=== PATIENT | female | born 1975 | race Caucasian/White ===

== ENCOUNTER 2017-11-11 14:18 | Inpatient (IN) | payer OTHER ==
--- NOTE | 2017-11-11 14:43 | PDOC ---
Rapid Medical Evaluation Time Seen by Provider: 11/11/17 14:41 Medical Evaluation: Allergies Allergy/AdvReac Type Severity Reaction Status Date / Time No Known Allergies Allergy Verified 07/05/17 22:13 11/11/17 14:42 I have performed a brief in-person evaluation of this patient. The patient presents with a chief complaint of: Epigastric pain x 1 week w/ n/ v. Dx w/ gallstones at [facility] in 06/30 after p/w abd pain. No surgeries Pertinent physical exam findings:stable w/ +ttp to epigastrium I have ordered the following:labs The patient will proceed to the ED for further evaluation. 11/11/17 14:48 Discharge Disposition - Diagnosis Abdominal pain Qualifiers: Abdominal location: epigastric Qualified Code(s): R10.13 - Epigastric pain - Referrals - Patient Instructions - Post Discharge Activity
--- NOTE | 2017-11-11 15:05 | PDOC ---
History of Present Illness - General Chief Complaint: Pain Stated Complaint: ABDOMINAL PAIN Time Seen by Provider: 11/11/17 14:41 - History of Present Illness Initial Comments: 11/11/17 17:26 Patient is a 42 year old female without any significant PMH who presents to our ED c/o 2 day h/o exacerbation of a intermittent abdominal pain that started 4-5 months previous. Pain is constant, 10/10, epigastric, without any radiation. Endorses nausea and decreased appetite 2/2 to symptoms however is tolerating PO intake. Denies vomiting, fevers, dysuria/hematuria, constipation or diarrhea. Last BM prior to presentation. Patient states she was evaluated earlier this year for similar symptoms and advised to have her gallbladder removed, however she has not done so. LMP was October 2017. NKDA Surgical: breast augmentation Social: denies alcohol, denies nicotine, denies recreational drugs PMD: Dr. Peralta As per EMR patient was evaluated at our facility in June 2017 at which time labs significant for biliary colic w/o active cholecystitis. Patient was referred to Dr. Ying for elective cholecystectomy. Past History - Past Medical History Allergies/Adverse Reactions: Allergies Allergy/AdvReac Type Severity Reaction Status Date / Time morphine AdvReac Hives Verified 11/11/17 19:58 Home Medications: Ambulatory Orders NK [No Known Home Medication] 11/11/17 COPD: No - Immunization History Immunization Up to Date: Yes - Suicide/Smoking/Psychosocial Hx Smoking History: Never smoked Have you smoked in the past 12 months: No Hx Alcohol Use: No Drug/Substance Use Hx: No Substance Use Type: None Review of Systems - Review of Systems Constitutional: No: Chills, Fever Respiratory: No: Cough, Shortness of Breath Cardiac (ROS): No: Chest Pain, Lightheadedness, Palpitations ABD/GI: Yes: Nausea, Abdominal cramping. No: Constipated, Diarrhea, Rectal Bleeding, Vomiting : No: Burning, Dysuria *Physical Exam - Vital Signs Last Vital Signs Temp Pulse Resp BP Pulse Ox 97.2 F L 76 18 136/79 100 11/11/17 14:51 11/11/17 14:51 11/11/17 14:51 11/11/17 14:51 11/11/17 14:51 - Physical Exam General Appearance: Yes: Nourished, Appropriately Dressed Neck: positive: Trachea midline, Supple Respiratory/Chest: positive: Lungs Clear, Normal Breath Sounds Cardiovascular: positive: S1, S2 Vascular Pulses: Dorsalis-Pedis (R): 2+, Doralis-Pedis (L): 2+ Gastrointestinal/Abdominal: positive: Normal Bowel Sounds, Soft, Other ( Epigastric, RUQ TTP, (-) Osorio's sign on PE and sonographically). negative: Guarding, Rebound Musculoskeletal: negative: CVA Tenderness (R), CVA Tenderness (L) Extremity: positive: Normal Capillary Refill, Normal Inspection Integumentary: positive: Normal Color, Dry, Warm Neurologic: positive: Fully Oriented, Alert ED Treatment Course - LABORATORY CBC & Chemistry Diagram: 11/12/17 06:15 11/12/17 06:15 Medical Decision Making - Medical Decision Making 11/11/17 16:56 42 year old female presents with 5-6 month h/o intermittent epigastric pain. H/ o cholelithiasis w/recommendation for elective cholecystectomy. PE significant for RUQ epigastric TTP. Negative Osorio's and peritoneal signs. 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 Will obtain basic labs, lipase and GB U/S. Bedside U/S shows cholelithiasis, confirmed by formal U/S. No wall thickening, edema suggesting active cholecystitis. CMP significant for AST 586, ALT 936. Patient likely to require MCRP to evaluate for CBD stone as well as cholecystitis. Will page [facility] consultant surgery. Case d/w Dr. Ying. Evaluated patient at bedside. Requested continuous fluids as well as pain control w/IV Tylenol. Patient signed out to Dr. Carmichael (Resident) and Dr. Toure (Attending). Patient pending transfer to inpatient medical floors. *DC/Admit/Observation/Transfer Diagnosis at time of Disposition: Abdominal pain Qualifiers: Abdominal location: epigastric Qualified Code(s): R10.13 - Epigastric pain - Referrals - Patient Instructions - Post Discharge Activity
[2017-11-11 15:08] LABS: BASO % 0.4 % (0-2.0); EOS % 1.4 % (0-4.5); HEMATOCRIT 38.7 % (32.4-45.2); HEMOGLOBIN 12.9 GM/dL (10.7-15.3); LYMPH % 24.9 % (8-40); MCH 29.9 pg (25.7-33.7); MCHC 33.3 g/dl (32.0-36.0); MEAN CELL VOLUME 89.6 fl (80-96); MEAN PLT VOLUME 7.7 fl (7.5-11.1); MONO % 5.7 % (3.8-10.2); NEUT % 67.6 % (42.8-82.8); PLATELET COUNT 266 K/MM3 (134-434); RBC 4.31 M/mm3 (3.60-5.2); RDW 12.9 % (11.6-15.6); WHITE BLOOD COUNT 6.1 K/mm3 (4.0-10.0)
[2017-11-11 15:10] LABS: URINE APPEARANCE CLEAR; URINE BILIRUBIN NEGATIVE (<2.0 mg/dL); URINE COLOR YELLOW; URINE GLUCOSE (UA) NEGATIVE (NEGATIVE); URINE KETONE TRACE (NEGATIVE); URINE LEUK ESTERASE NEGATIVE (NEGATIVE); URINE NITRITE NEGATIVE (NEGATIVE); URINE PROTEIN NEGATIVE (NEGATIVE); URINE UROBILINOGEN NEGATIVE mg/dL (0.2-1.0)
[2017-11-11 15:37] LABS: CHLORIDE 101 mmol/L (98-107); SODIUM 137 mmol/L (136-145)
[2017-11-11 15:57] LABS: ALBUMIN 4.1 g/dl (3.4-5.0); ALK PHOS 198 U/L (45-117); ANION GAP 9 (8-16); BILIRUBIN,TOTAL 5.5 mg/dL (0.2-1.0); BLOOD UREA NITROGEN 14 mg/dL (7-18); CALCIUM 9.3 mg/dL (8.5-10.1); CO2 27 mmol/L (21-32); CREATININE 0.7 mg/dL (0.55-1.02); GLUCOSE,RANDOM 89 mg/dL (74-106); LIPASE 74 U/L (73-393)
[2017-11-11 15:59] LABS: SGOT/AST 586 U/L (15-37); SGPT/ALT 936 U/L (12-78)
[2017-11-11] MEDS ORDERED: morphine CARPU-JECT 4 MG/1 ML DISP.SYRIN IVPUSH ONE (16:53)
[2017-11-11] MEDS ORDERED: SODIUM CHLORIDE 0.9% 500 ML INFUS.BAG IV ONE (17:02)
[2017-11-11] MEDS ORDERED: morphine SULFATE 4 MG/ML VIAL ONE (17:11)
--- NOTE | 2017-11-11 17:58 | PDOC ---
Attending Attestation - Resident Resident Name: Socorro Patel - ED Attending Attestation I have performed the following: I have examined & evaluated the patient, The case was reviewed & discussed with the resident, I agree w/resident's findings & plan, Exceptions are as noted - Medical Decision Making 11/11/17 17:56 42-year-old female with a past medical history here today complaining of intermittent abdominal pain for several months constant over the last here today for evaluation because became very severe. Does have associated nausea and vomiting last night no fevers no chills On exam patient has right upper quadrant epigastric tenderness no Osorio's sign no rebound no guarding Differential diagnosis includes cholelithiasis cholecystitis pyelonephritis gastritis or duodenal ulcer. Plan ultrasound of gallbladder labs including CBC CMP and lipase UA Labs are noted for elevated liver enzymes ultrasound shows cholelithiasis with no wall thickening or edema no signs of cholecystitis we'll discuss with surgery patient does have elevated LFTs and is uncomfortable <Marjorie Ann - Last Filed: 11/11/17 17:55> - HPI HPI: 11/11/17 18:31 The patient is a year old female with no significant PMH who presents to the emergency department with 4 months of right upper quadrant abdominal pain. The patient reports that her RUQ abdominal pain has worsened significantly for the past 1 week. She describes her abdominal pain as constant. She reports associated vomiting and nausea with her abdominal pain. The patient denies any other symptoms. She denies any fever, chills, diarrhea , constipation or urinary symptoms. She denies any chest pain, shortness of breath, headache and dizziness. The patient denies any other complaints Allergies: NKDA - Physicial Exam PE: 11/11/17 18:32 GENERAL: Awake, alert, and fully oriented, in no acute distress HEAD: No signs of trauma EYES: PERRLA, EOMI, sclera anicteric, conjunctiva clear ENT: Auricles normal inspection, hearing grossly normal, nares patent, oropharynx clear without exudates. Moist mucosa NECK: Normal ROM, supple, no lymphadenopathy, JVD, or masses LUNGS: Breath sounds equal, clear to auscultation bilaterally. No wheezes, and no crackles HEART: Regular rate and rhythm, normal S1 and S2, no murmurs, rubs or gallops ABDOMEN: (+)Epigastric and right upper quadrant tenderness. Soft, normoactive bowel sounds. No guarding, no rebound. No masses EXTREMITIES: Normal range of motion, no edema. No clubbing or cyanosis. No cords, erythema, or tenderness NEUROLOGICAL: Cranial nerves II through XII grossly intact. Normal speech, normal gait SKIN: Warm, Dry, normal turgor, no rashes or lesions noted. Documentation prepared by Fermin Moses, acting as medical lab director for Marjorie Ann MD. <Fermin Moses - Last Filed: 11/11/17 18:32>
[2017-11-11 18:00] LABS: INR 1.12 (0.82-1.09); PROTHROMBIN TIME (PATIENT) 12.7 SEC (9.7-13.0)
[2017-11-11] MEDS ORDERED: HYDROmorphone HCL 2 MG TABLET ONE (19:06)
[2017-11-11] MEDS ORDERED: ACETAMINOPHEN INJECTION 100 ML IVPB ONE (19:27)
[2017-11-11] MEDS ORDERED: ACETAMINOPHEN 1000 MG/100 ML VIAL (NON FORMULARY) IVPB ONE (19:28)
--- NOTE | 2017-11-11 19:41 | PDOC ---
*Physical Exam - Vital Signs Last Vital Signs Temp Pulse Resp BP Pulse Ox 97.2 F L 76 18 136/79 100 11/11/17 14:51 11/11/17 14:51 11/11/17 14:51 11/11/17 14:51 11/11/17 14:51 ED Treatment Course - LABORATORY CBC & Chemistry Diagram: 11/11/17 14:58 11/11/17 14:58 - ADDITIONAL ORDERS Additional order review: Laboratory Results 11/11/17 11/11/17 11/11/17 17:32 17:32 14:58 PT with INR 12.70 INR 1.12 Sodium 137 Potassium 4.0 Chloride 101 Carbon Dioxide 27 Anion Gap 9 BUN 14 Creatinine 0.7 Creat Clearance w eGFR > 60 Random Glucose 89 Calcium 9.3 Total Bilirubin 5.5 H AST 586 H ALT 936 H Alkaline Phosphatase 198 H Total Protein 8.0 Albumin 4.1 Lipase 74 Serum , Qual Urine Color Urine Appearance Urine pH Ur Specific [place] Urine Protein Urine Glucose (UA) Urine Ketones Urine Blood Urine Nitrite Urine Bilirubin Urine Urobilinogen Ur Leukocyte Esterase Urine WBC (Auto) Urine RBC (Auto) Blood Type AB POSITIVE Antibody Screen Negative 11/11/17 11/11/17 14:58 14:58 PT with INR INR Sodium Potassium Chloride Carbon Dioxide Anion Gap BUN Creatinine Creat Clearance w eGFR Random Glucose Calcium Total Bilirubin AST ALT Alkaline Phosphatase Total Protein Albumin Lipase Serum , Qual Negative Urine Color Yellow Urine Appearance Clear Urine pH 6.0 Ur Specific [place] 1.003 Urine Protein Negative Urine Glucose (UA) Negative Urine Ketones Trace H Urine Blood 2+ H Urine Nitrite Negative Urine Bilirubin Negative Urine Urobilinogen Negative Ur Leukocyte Esterase Negative Urine WBC (Auto) 3-5 Urine RBC (Auto) 10-15 Blood Type Antibody Screen 11/11/17 14:58 RBC 4.31 MCV 89.6 MCHC 33.3 RDW 12.9 MPV 7.7 Neutrophils % 67.6 D Lymphocytes % 24.9 D Monocytes % 5.7 Eosinophils % 1.4 Basophils % 0.4 - Medications Given in the ED: ED Medications Discontinued Medications Generic Name Dose Route Start Last Admin Trade Name Freq PRN Reason Stop Dose Admin Diphenhydramine HCl 25 mg 11/11/17 17:02 11/11/17 17:10 Benadryl Injection - IVPUSH 07/02/18 17:03 25 mg ONCE ONE Administration Morphine Sulfate 4 mg 11/11/17 16:53 11/11/17 17:02 Morphine Injection - IVPUSH 11/11/17 16:54 4 mg ONCE ONE Administration Sodium Chloride 1,000 ml 11/11/17 17:02 11/11/17 17:10 Normal Saline - IV 11/11/17 17:03 1,000 ml ONCE ONE Administration Medical Decision Making - Medical Decision Making 42 year old female signed out to me in stable condition pending CT for cholecystectomy preop. Placed an order for 0.[address] for CT scan premedication. 11/11/17 19:41 *DC/Admit/Observation/Transfer Diagnosis at time of Disposition: Abdominal pain Qualifiers: Abdominal location: epigastric Qualified Code(s): R10.13 - Epigastric pain - Referrals - Patient Instructions - Post Discharge Activity
[2017-11-11] MEDS ORDERED: LORazepam 2 MG/ML SDV VIAL ONE (19:43)
[2017-11-11] MEDS ORDERED: KETOROLAC TROMETHAMINE 30 MG/1 ML VIAL IVPUSH PRN (19:47)
--- NOTE | 2017-11-11 20:03 | HP ---
Admitting History and Physical - Admission Chief Complaint: epigastric/upper abd pain History of Present Illness: 42yo F with h/o breast augmentation, liposuction, symptomatic cholelithiasis presents to ER with 6 mos of epigastric pain intermittently, sometimes associated with fatty food intake, who was seen in the ER in June for similar symptoms and had US and labs showing biliary colic but not cholecystitis. She was referred to surgery, but "got scared and did not make the appointment." She presents today with 3 days of much worse pain, associated with n/v, subjective fever previously, but not in last few days, and dark/ orange urine. Last BM was today, but she reports some constipation. In the ER, she is afebrile, with normal wbc, but significantly elevated LFTs and normal lipase. Bili is 5.5. US showed multiple gallstones without signs of cholecystitis. She has been in pain in the ER, and was given morphine but had some hives and so has since had IV Tylenol, which did not help as much, and IV Toradol which is helping a bit more. She has taken Tramadol at home with some effect in the past (after Jun visit). She is having pain at initial exam prior to MRCP, and is much calmer and more comfortable afterward, having also had 0.5mg ativan. History Source: Patient Limitations to Obtaining History: Language Barrier (Iranian - Dr. Toure facilitated Iranian translation at bedside) - Past Medical History Hepatobiliary: Yes: Cholelithiasis ...: No - Past Surgical History Additional Past Surgical History: breast augmentation, liposuction - Smoking History Smoking history: Never smoked Have you smoked in the past 12 months: No - Alcohol/Substance Use Hx Alcohol Use: No History of Substance Use: reports: None - Social History ADL: Independent Home Medications - Allergies Allergies/Adverse Reactions: Allergies Allergy/AdvReac Type Severity Reaction Status Date / Time morphine AdvReac Hives Verified 11/11/17 19:58 - Home Medications Home Medications: Ambulatory Orders NK [No Known Home Medication] 11/11/17 Family Disease History - Family Disease History Family History: Unable to Obtain (noncontributory) Review of Systems Unable to obtain ROS, reason: limited - Review of Systems Constitutional: reports: Fever. denies: Chills Eyes: denies: Blurred Vision, Recent Change in Vision HENT: denies: Difficult Swallowing, Nasal Congestion, Throat Pain Neck: denies: Swollen Glands, Tenderness Cardiovascular: denies: Chest Pain, Palpitations Respiratory: denies: Cough, SOB Gastrointestinal: reports: Abdominal Pain (with hpi), Constipation, Nausea, Vomiting. denies: Diarrhea Genitourinary: reports: Other (orange urine). denies: Burning, Dysuria Breasts: reports: Breast Implants Musculoskeletal: reports: Back Pain (with hpi) Integumentary: reports: Change in Color ("maybe" a little yellowish?). denies: Rash Neurological: denies: Dizziness, Headache Physical Examination Vital Signs: Vital Signs Temperature 97.2 F L 11/11/17 14:51 Pulse Rate 76 11/11/17 14:51 Respiratory Rate 18 11/11/17 14:51 Blood Pressure 136/79 11/11/17 14:51 O2 Sat by Pulse Oximetry (%) 100 11/11/17 14:51 Constitutional: Yes: Well Nourished, Calm, Mild Distress (secondary to pain) Eyes: Yes: Conjunctiva Clear, EOM Intact. No: Sclera Icterus HENT: Yes: Atraumatic, Normocephalic Neck: Yes: Supple, Trachea Midline Cardiovascular: Yes: Regular Rate and Rhythm. No: Murmur Respiratory: Yes: Regular, CTA Bilaterally Gastrointestinal: Yes: Normal Bowel Sounds, Soft, Tenderness (epigastric and RUQ mostly, no ernie/guard; less LUQ), Tenderness, Epigastrium. No: Distention, Tenderness, Rebound ...Rectal Exam: Yes: Deferred Renal/: Yes: CVA Tenderness - Right. No: CVA Tenderness - Left Breast(s): Yes: Breast Implants Musculoskeletal: Yes: Back Pain (not direct tenderness but indicates pain in central back) Extremities: No: Cool, Cyanosis Edema: No Peripheral Pulses WNL: Yes Integumentary: Yes: Jaundice (?mild - possible). No: Rash Neurological: Yes: Alert, Oriented Psychiatric: Yes: Alert, Oriented Labs: CBC, BMP 11/11/17 14:58 11/11/17 14:58 CMP Sodium 137 mmol/L (136-145) 11/11/17 14:58 Potassium 4.0 mmol/L (3.5-5.1) 11/11/17 14:58 Chloride 101 mmol/L (98-107) 11/11/17 14:58 Carbon Dioxide 27 mmol/L (21-32) 11/11/17 14:58 Anion Gap 9 (8-16) 11/11/17 14:58 BUN 14 mg/dL (7-18) 11/11/17 14:58 Creatinine 0.7 mg/dL (0.55-1.02) 11/11/17 14:58 Creat Clearance w eGFR > 60 (>60) 11/11/17 14:58 Random Glucose 89 mg/dL (74-106) 11/11/17 14:58 Calcium 9.3 mg/dL (8.5-10.1) 11/11/17 14:58 Total Bilirubin 5.5 mg/dL (0.2-1.0) H 11/11/17 14:58 AST 586 U/L (15-37) H 11/11/17 14:58 ALT 936 U/L (12-78) H 11/11/17 14:58 Alkaline Phosphatase 198 U/L (45-117) H 11/11/17 14:58 Total Protein 8.0 g/dl (6.4-8.2) 11/11/17 14:58 Albumin 4.1 g/dl (3.4-5.0) 11/11/17 14:58 Lipase 74 U/L (73-393) 11/11/17 14:58 Serum , Qual Negative 11/11/17 14:58 INR, PTT INR 1.12 (0.82-1.09) 11/11/17 17:32 Urine Test Results Urine Color Yellow 11/11/17 14:58 Urine Appearance Clear 11/11/17 14:58 Urine pH 6.0 (5.0-8.0) 11/11/17 14:58 Ur Specific [place] 1.003 (1.001-1.035) 11/11/17 14:58 Urine Protein Negative (NEGATIVE) 11/11/17 14:58 Urine Glucose (UA) Negative (NEGATIVE) 11/11/17 14:58 Urine Ketones Trace (NEGATIVE) H 11/11/17 14:58 Urine Blood 2+ (NEGATIVE) H 11/11/17 14:58 Urine Nitrite Negative (NEGATIVE) 11/11/17 14:58 Urine Bilirubin Negative (<2.0 mg/dL) 11/11/17 14:58 Ur Leukocyte Esterase Negative (NEGATIVE) 11/11/17 14:58 bili and LFTs were normal in June Imaging - Results Ultrasound: Report Reviewed, Image Reviewed (images personally reviewed - multiple gallstones, mildly dilated cbd?, no wall thickening or pericholecystic fluid) MRI: Pending Problem List - Problems (1) Calculus of gallbladder without cholecystitis without obstruction Assessment/Plan: biliary colic but now with significantly elevated LFTs admit to surgery NPO/IVF pain meds prn, first-line nonnarcotics GI/DVT prophylaxis MRCP pending trend labs further intervention pending results of studies in am will hold on antibiotics for now unless MRCP positive Dr. Toure facilitated Iranian interpretation at bedside: Discussed with patient risks, benefits and alternatives of laparoscopic possible open cholecystectomy, including but not limited to bleeding, infection , injury to adjacent structures, bile leak or ductal injury, intraabdominal abscess, need for further procedures; alternatives include delayed or no surgery - risks of this include recurrence of biliary colic, cholecystitis, cholangitis, pancreatitis. Patient desires to proceed with operation. Informed consent signed for same. Will plan for OR only after duct is cleared by MRCP or ERCP, and LFTs improving on labs. Anticipate lap baldomero this admission, timing to be determined. Code(s): K80.20 - CALCULUS OF GALLBLADDER W/O CHOLECYSTITIS W/O OBSTRUCTION (2) Epigastric pain Code(s): R10.13 - EPIGASTRIC PAIN (3) Elevated liver function tests Code(s): R94.5 - ABNORMAL RESULTS OF LIVER FUNCTION STUDIES
[2017-11-11] MEDS: SODIUM CHLORIDE 1,000 ML IV SCH (20:32)
[2017-11-11] MEDS ORDERED: KETOROLAC TROMETHAMINE 30 MG/1 ML VIAL ONE (20:33)
[2017-11-11 23:38] VITALS: BMI 25.7
[2017-11-12] MEDS: ACETAMINOPHEN 1000 MG/100 ML VIAL (NON FORMULARY) IVPB SCH ×4 (01:59→20:44)
[2017-11-12] MEDS: SODIUM CHLORIDE 1,000 ML IV SCH (02:00)
[2017-11-12 08:00] LABS: BASO % 0.4 % (0-2.0); EOS % 0.7 % (0-4.5); HEMATOCRIT 33.5 % (32.4-45.2); HEMOGLOBIN 11.3 GM/dL (10.7-15.3); LYMPH % 15.8 % (8-40); MCH 30.7 pg (25.7-33.7); MCHC 33.8 g/dl (32.0-36.0); MEAN PLT VOLUME 7.7 fl (7.5-11.1); MONO % 4.2 % (3.8-10.2); NEUT % 78.9 % (42.8-82.8); PLATELET COUNT 205 K/MM3 (134-434); RBC 3.68 M/mm3 (3.60-5.2); RDW 12.8 % (11.6-15.6); WHITE BLOOD COUNT 5.9 K/mm3 (4.0-10.0)
[2017-11-12 08:37] LABS: ALBUMIN 3.2 g/dl (3.4-5.0); ANION GAP 14 (8-16); BLOOD UREA NITROGEN 11 mg/dL (7-18); CALCIUM 8.2 mg/dL (8.5-10.1); CHLORIDE 106 mmol/L (98-107); CO2 20 mmol/L (21-32); CREATININE 0.5 mg/dL (0.55-1.02); GLUCOSE,RANDOM 69 mg/dL (74-106); LIPASE 69 U/L (73-393); POTASSIUM 4.1 mmol/L (3.5-5.1); SGOT/AST 282 U/L (15-37); SODIUM 140 mmol/L (136-145)
[2017-11-12 08:39] LABS: ALK PHOS 167 U/L (45-117); BILIRUBIN,TOTAL 4.8 mg/dL (0.2-1.0); TOT PROT 6.5 g/dl (6.4-8.2)
[2017-11-12 08:44] LABS: SGPT/ALT 598 U/L (12-78)
[2017-11-12] MEDS ORDERED: LACTATED RINGERS SOLUTION 1,000 ML/1,000 ML INFUS.BAG IV SCH ×3 (10:00→20:30)
--- NOTE | 2017-11-12 10:04 | CON.GI ---
Consult Consult Specialty:: Gastroenterology Referred by:: Dr Rosales Ying Reason for Consultation:: Jaundice - History of Present Illness Chief Complaint: Abdominal pain History of Present Illness: 42F Ukrainian speaking who was interviewed with the help of [employer] seismic interpreter #[id number]. She has a h/o biliary colic and had cholecystectomy offered in 06/30 but declined. She now presents with jaundice and pain. The pain is epigastric and is triggered by fatty foods. Had nausea but did not vomit. Sonogram reveals multiple GB stones. MRCP suggests a CBD stone but the official reading is pending. I await Dr Howard's call back. - History Source History Provided By: Patient Limitations to Obtaining History: Language Barrier - Past Medical History Gastrointestinal: Yes: Constipation Hepatobiliary: Yes: Cholelithiasis ...: No - Past Surgical History Past Surgical History: Yes: Additional Surgical History: Breast augmentation and liposuction - Alcohol/Substance Use Hx Alcohol Use: No History of Substance Use: reports: None - Smoking History Smoking history: Never smoked Have you smoked in the past 12 months: No - Social History Usual Living Arrangement: With Spouse ADL: Independent [facility] : [facility] ([facility]) History of Recent Travel: No Home Medications - Allergies Allergies/Adverse Reactions: Allergies Allergy/AdvReac Type Severity Reaction Status Date / Time morphine AdvReac Hives Verified 11/11/17 19:58 - Home Medications Home Medications: Ambulatory Orders NK [No Known Home Medication] 11/11/17 Family Disease History - Family Disease History Family Disease History: Heart Disease: Mother Other Family History: Aunt has cancer Review of Systems - Review of Systems Constitutional: reports: No Symptoms Eyes: reports: No Symptoms HENT: reports: No Symptoms Neck: reports: No Symptoms Cardiovascular: reports: No Symptoms Respiratory: reports: No Symptoms Gastrointestinal: reports: Abdominal Pain, Constipation Genitourinary: reports: Other (dark urine) Psychiatric: reports: Anxiety Physical Exam-GI Vital Signs: Vital Signs Temperature 98.3 F 11/12/17 06:00 Pulse Rate 77 11/12/17 06:00 Respiratory Rate 16 11/12/17 06:00 Blood Pressure 122/68 11/12/17 06:00 O2 Sat by Pulse Oximetry (%) 100 11/11/17 22:25 CBC,CMP WBC 5.9 K/mm3 (4.0-10.0) 11/12/17 06:15 RBC 3.68 M/mm3 (3.60-5.2) 11/12/17 06:15 Hgb 11.3 GM/dL (10.7-15.3) 11/12/17 06:15 Hct 33.5 % (32.4-45.2) 11/12/17 06:15 MCV 91.0 fl (80-96) 11/12/17 06:15 MCH 30.7 pg (25.7-33.7) 11/12/17 06:15 MCHC 33.8 g/dl (32.0-36.0) 11/12/17 06:15 RDW 12.8 % (11.6-15.6) 11/12/17 06:15 Plt Count 205 K/MM3 (134-434) D 11/12/17 06:15 MPV 7.7 fl (7.5-11.1) 11/12/17 06:15 Absolute Neuts (auto) 4.6 # 11/12/17 06:15 Neutrophils % 78.9 % (42.8-82.8) 11/12/17 06:15 Lymphocytes % 15.8 % (8-40) D 11/12/17 06:15 Monocytes % 4.2 % (3.8-10.2) 11/12/17 06:15 Eosinophils % 0.7 % (0-4.5) 11/12/17 06:15 Basophils % 0.4 % (0-2.0) 11/12/17 06:15 Nucleated RBC % 0 % (0-0) 11/12/17 06:15 Sodium 140 mmol/L (136-145) 11/12/17 06:15 Potassium 4.1 mmol/L (3.5-5.1) 11/12/17 06:15 Chloride 106 mmol/L (98-107) 11/12/17 06:15 Carbon Dioxide 20 mmol/L (21-32) L 11/12/17 06:15 Anion Gap 14 (8-16) 11/12/17 06:15 BUN 11 mg/dL (7-18) 11/12/17 06:15 Creatinine 0.5 mg/dL (0.55-1.02) L 11/12/17 06:15 Creat Clearance w eGFR > 60 (>60) 11/12/17 06:15 Random Glucose 69 mg/dL (74-106) L 11/12/17 06:15 Calcium 8.2 mg/dL (8.5-10.1) L 11/12/17 06:15 Total Bilirubin 4.8 mg/dL (0.2-1.0) H 11/12/17 06:15 AST 282 U/L (15-37) H 11/12/17 06:15 ALT 598 U/L (12-78) H 11/12/17 06:15 Alkaline Phosphatase 167 U/L (45-117) H D 11/12/17 06:15 Total Protein 6.5 g/dl (6.4-8.2) 11/12/17 06:15 Albumin 3.2 g/dl (3.4-5.0) L 11/12/17 06:15 Lipase 69 U/L (73-393) L 11/12/17 06:15 Serum , Qual Negative 11/11/17 14:58 Current Medications Generic Name Dose Route Start Last Admin Trade Name Freq PRN Reason Stop Dose Admin Acetaminophen 1,000 mg 11/12/17 03:00 11/12/17 01:59 Ofirmev Injection - IVPB 11/13/17 21:01 1,000 mg Q6H ZOILA Administration Lactated Ringer's 1,000 ml in 1,000 mls @ 150 mls/hr 11/12/17 10:00 Lactated Ringers Solution IV ASDIR ZOILA Indomethacin 50 mg 11/12/17 09:56 Indocin Suppository - AR 11/12/17 09:57 ONCE ONE Ketorolac Tromethamine 30 mg 11/11/17 19:47 11/11/17 20:35 Toradol Injection - IVPUSH 11/16/17 19:46 30 mg Q6H PRN Administration PAIN LEVEL 7 - 10 Ondansetron HCl 4 mg 11/11/17 19:54 Zofran Injection IVPUSH Q6H PRN NAUSEA Constitutional: Yes: Well Nourished Eyes: Yes: Sclera Icterus HENT: Yes: Normocephalic Neck: Yes: Supple Cardiovascular: Yes: Regular Rate and Rhythm Respiratory: Yes: CTA Bilaterally Gastrointestinal Inspection: Yes: Scars (healed [place]) ...Auscultate: Yes: Normoactive Bowel Sounds ...Palpate: Yes: Tenderness (epigastric mild tenderness, no peritoneal signs) ...Rectal Exam: Yes: Deferred Edema: No Peripheral Pulses WNL: Yes Neurological: Yes: Alert, Oriented Labs: CBC, BMP 11/12/17 06:15 11/12/17 06:15 INR, PTT INR 1.12 (0.82-1.09) 11/11/17 17:32 Imaging - Results MRI: Image Reviewed (mid-CBD stone seen) Problem List - Problems (1) Elevated liver function tests Assessment/Plan: Given her pain and GB stones choledocholithiasis is the most likely etiology for this jaundice. Using [employer] seismic interpreter #[id number] I have advised ERCP with sphincterotomy for stone extractions and/or stenting. I have informed Emiliana of the potential for such complication as perforation, hemorrhage and multiorgan failure that can arise as a result of ERCP induced pancreatitis. I did inform her of the risks that CBD stones pose including ascending cholangitis and biliary pancreatitis among others. After I answered her questions she signed an informed consent. I will do the ERCP today. I have communicated with Dr Ying and ordered a preprocedure Indocin suppository to protect Emiliana against pancreatittis. Code(s): R94.5 - ABNORMAL RESULTS OF LIVER FUNCTION STUDIES (2) Abdominal pain Code(s): R10.9 - UNSPECIFIED ABDOMINAL PAIN Qualifiers: Abdominal location: epigastric Qualified Code(s): R10.13 - Epigastric pain (3) Calculus of gallbladder without cholecystitis without obstruction Code(s): K80.20 - CALCULUS OF GALLBLADDER W/O CHOLECYSTITIS W/O OBSTRUCTION
[2017-11-12] MEDS ORDERED: INDOMETHACIN 50 MG RECTAL SUPPOSITORY PR ONE (10:15)
[2017-11-12] MEDS ORDERED: PROPOFOL 20 ML ONE (13:01)
[2017-11-12] MEDS ORDERED: ONDANSETRON 4 MG/2 ML VIAL ONE (13:01)
[2017-11-12] MEDS ORDERED: MIDAZOLAM HCL 2 MG/2 ML SINGLE DOSE VIAL ONE (13:01)
[2017-11-12] MEDS ORDERED: LIDOCAINE HCL 2% 100 MG/5 ML DISP.SYRIN ONE (13:01)
--- NOTE | 2017-11-12 13:19 | CON.ID ---
Consult Consult Specialty:: infectious diseases Referred by:: Reason for Consultation:: choleycystitis - History of Present Illness Chief Complaint: ruq pain History of Present Illness: 42yo F with h/o breast augmentation, liposuction, symptomatic cholelithiasis presents admitted because of epigastric pain according to her the pain has been going on for 6 months or so patient has been advised before to get surgery done and remove the gallbladder which she did not this time she came in because during the last 3-4 days he pain had come back and increased which was associated with nausea and vomiting and on work up her bili has gone high to 5 US showed multiple gallstones without signs of cholecystitis. patient was seen by surgery and gi just saw her and the plan is to take the patient for ercp patient had an abd mri done - History Source History Provided By: Patient, Medical Record Limitations to Obtaining History: Language Barrier - Past Medical History Gastrointestinal: Yes: Constipation Hepatobiliary: Yes: Cholelithiasis ...: No - Past Surgical History Past Surgical History: Yes: Additional Surgical History: Breast augmentation and liposuction - Alcohol/Substance Use Hx Alcohol Use: No History of Substance Use: reports: None - Smoking History Smoking history: Never smoked Have you smoked in the past 12 months: No - Social History Usual Living Arrangement: With Spouse ADL: Independent History of Recent Travel: No Home Medications - Allergies Allergies/Adverse Reactions: Allergies Allergy/AdvReac Type Severity Reaction Status Date / Time No Known Drug Allergies Allergy Verified 11/12/17 14:49 morphine AdvReac Hives Verified 11/11/17 19:58 - Home Medications Home Medications: Ambulatory Orders NK [No Known Home Medication] 11/11/17 Family Disease History - Family Disease History Family Disease History: Heart Disease: Mother Other Family History: Aunt has cancer Review of Systems - Review of Systems Constitutional: reports: Fever Eyes: reports: No Symptoms HENT: reports: No Symptoms Neck: reports: No Symptoms Cardiovascular: reports: No Symptoms Respiratory: reports: No Symptoms Gastrointestinal: reports: Abdominal Pain, Nausea, Vomiting Genitourinary: reports: No Symptoms Musculoskeletal: reports: No Symptoms Integumentary: reports: No Symptoms Neurological: reports: No Symptoms Endocrine: reports: No Symptoms Hematology/Lymphatic: reports: No Symptoms Psychiatric: reports: No Symptoms Physical Exam Vital Signs: Vital Signs Temperature 98.3 F 11/12/17 10:00 Pulse Rate 67 11/12/17 10:00 Respiratory Rate 18 11/12/17 10:00 Blood Pressure 108/60 11/12/17 10:00 O2 Sat by Pulse Oximetry (%) 99 11/12/17 09:00 Constitutional: Yes: Well Nourished, Calm, Mild Distress Cardiovascular: Yes: Regular Rate and Rhythm Respiratory: Yes: Regular, CTA Bilaterally Gastrointestinal: Yes: Soft, Hypoactive Bowel Sounds, Tenderness (ruq,epigastric ) Musculoskeletal: Yes: WNL Extremities: Yes: WNL Neurological: Yes: Alert, Oriented Psychiatric: Yes: Alert, Oriented Labs: CBC, BMP 11/12/17 06:15 11/12/17 06:15 Imaging - Results Ultrasound: Report Reviewed, Image Reviewed MRI: Report Reviewed, Image Reviewed Assessment/Plan Problem List - Problems (1) Calculus of gallbladder without cholecystitis without obstruction. Code(s): K80.20 - CALCULUS OF GALLBLADDER W/O CHOLECYSTITIS W/O OBSTRUCTION (2) Epigastric pain Code(s): R10.13 - EPIGASTRIC PAIN (3) Elevated liver function tests Code(s): R94.5 - ABNORMAL RESULTS OF LIVER FUNCTION STUDIES patient with biliary colic and choleycystitis with increased bili going for ercp plan jessica start patient on abx continue current mgmt will need cholecystectomy monitor enzymes and bili
[2017-11-12] MEDS ORDERED: ceFAZolin SODIUM 1 GM VIAL IVPB ONE (13:55)
[2017-11-12] MEDS ORDERED: ceFAZolin SODIUM 1 GM VIAL ONE (13:57)
--- NOTE | 2017-11-12 14:58 | PN ---
Progress Note (short form) - Note Progress Note: GI procedure note: please seen scanned ERCP note. A single large stone and multiple stone fragments were found in the distal common bile duct. A sphincterotomy was performed. The stone and stone debris were extracted using an extractor balloon. Case discussed with Dr Ying. Problem List - Problems (1) Elevated liver function tests Code(s): R94.5 - ABNORMAL RESULTS OF LIVER FUNCTION STUDIES (2) Abdominal pain Code(s): R10.9 - UNSPECIFIED ABDOMINAL PAIN Qualifiers: Abdominal location: epigastric Qualified Code(s): R10.13 - Epigastric pain (3) Calculus of gallbladder without cholecystitis without obstruction Code(s): K80.20 - CALCULUS OF GALLBLADDER W/O CHOLECYSTITIS W/O OBSTRUCTION
--- NOTE | 2017-11-12 16:25 | PN ---
Progress Note, Physician History of Present Illness: Pt with biliary colic and choledocholithiasis, had ERCP today with GI with extraction of stone and multiple fragments from cbd with sphincterotomy. Seen and examined in bed on floor after procedure. Pt reports feeling better, denies pain at this time. No nausea. Resting comfortably. - Current Medication List Current Medications: Active Medications Acetaminophen (Ofirmev Injection -) 1,000 mg IVPB Q6H ZOILA Stop: 11/13/17 21:01 Last Admin: 11/12/17 10:14 Dose: Not Given Lactated Ringer's (Lactated Ringers Solution) 1,000 ml in 1,000 mls @ 250 mls/ hr IV ASDIR ZOILA Stop: 11/12/17 20:30 Last Admin: 11/12/17 15:53 Dose: 250 mls/hr Lactated Ringer's (Lactated Ringers Solution) 1,000 ml in 1,000 mls @ 200 mls/ hr IV ASDIR ZOILA Stop: 11/13/17 02:30 Lactated Ringer's (Lactated Ringers Solution) 1,000 ml in 1,000 mls @ 125 mls/ hr IV ASDIR ZOILA Stop: 11/13/17 08:30 Piperacillin Sod/Tazobactam (Sod 4.5 gm/ Dextrose) 100 mls @ 200 mls/hr IVPB Q8H-IV ZOILA; Protocol Ketorolac Tromethamine (Toradol Injection -) 30 mg IVPUSH Q6H PRN PRN Reason: PAIN LEVEL 7 - 10 Stop: 11/16/17 19:46 Last Admin: 11/11/17 20:35 Dose: 30 mg Ondansetron HCl (Zofran Injection) 4 mg IVPUSH Q6H PRN PRN Reason: NAUSEA - Objective Vital Signs: Vital Signs Temperature 97.7 F 11/12/17 14:35 Pulse Rate 61 11/12/17 15:22 Respiratory Rate 17 11/12/17 15:22 Blood Pressure 110/66 11/12/17 15:22 O2 Sat by Pulse Oximetry (%) 99 11/12/17 15:22 Constitutional: Yes: Well Nourished, No Distress, Calm Eyes: Yes: Conjunctiva Clear, EOM Intact HENT: Yes: Atraumatic, Normocephalic Cardiovascular: Yes: Regular Rate and Rhythm Respiratory: Yes: Regular, CTA Bilaterally Gastrointestinal: Yes: Normal Bowel Sounds, Soft. No: Tenderness, Tenderness, Epigastrium ...Rectal Exam: Yes: Deferred Musculoskeletal: No: Joint Stiffness, Joint Swelling Extremities: No: Cool, Cyanosis Integumentary: Yes: Jaundice (faint/mild). No: Rash Neurological: Yes: Alert (but sleepy), Oriented Labs: CBC, BMP 11/12/17 06:15 11/12/17 06:15 INR, PTT INR 1.12 (0.82-1.09) 11/11/17 17:32 CMP Sodium 140 mmol/L (136-145) 11/12/17 06:15 Potassium 4.1 mmol/L (3.5-5.1) 11/12/17 06:15 Chloride 106 mmol/L (98-107) 11/12/17 06:15 Carbon Dioxide 20 mmol/L (21-32) L 11/12/17 06:15 Anion Gap 14 (8-16) 11/12/17 06:15 BUN 11 mg/dL (7-18) 11/12/17 06:15 Creatinine 0.5 mg/dL (0.55-1.02) L 11/12/17 06:15 Creat Clearance w eGFR > 60 (>60) 11/12/17 06:15 Random Glucose 69 mg/dL (74-106) L 11/12/17 06:15 Calcium 8.2 mg/dL (8.5-10.1) L 11/12/17 06:15 Total Bilirubin 4.8 mg/dL (0.2-1.0) H 11/12/17 06:15 AST 282 U/L (15-37) H 11/12/17 06:15 ALT 598 U/L (12-78) H 11/12/17 06:15 Alkaline Phosphatase 167 U/L (45-117) H D 11/12/17 06:15 Total Protein 6.5 g/dl (6.4-8.2) 11/12/17 06:15 Albumin 3.2 g/dl (3.4-5.0) L 11/12/17 06:15 Lipase 69 U/L (73-393) L 11/12/17 06:15 Serum , Qual Negative 11/11/17 14:58 bili remains elevated, LFTs decreasing, lipase normal - ....Imaging MRI: Report Reviewed (MRCP reports possible sludge in cbd though no stones were seen, mildly dilated) Problem List - Problems (1) Calculus of gallbladder and bile duct without cholecystitis or obstruction Assessment/Plan: pt with choledocholithiasis: MRCP positive for sludge - ID, GI consulted ERCP done with stone and fragments retrieved, sphincterotomy done trend labs in am keep NPO/IVF pain meds prn encourage OOB/ambulation if labs ok in am without evidence of pancreatitis, may proceed with lap possible open cholecystectomy tomorrow Zosyn per ID Code(s): K80.70 - CALCULUS OF GB AND BILE DUCT W/O CHOLECYST W/O OBSTRUCTION (2) Epigastric pain Assessment/Plan: no pain currently Code(s): R10.13 - EPIGASTRIC PAIN (3) Elevated liver function tests Assessment/Plan: still up but decreasing trend in am Code(s): R94.5 - ABNORMAL RESULTS OF LIVER FUNCTION STUDIES
[2017-11-12] MEDS ORDERED: DEXTROSE 5%-WATER 100 ML IVPB ONE (16:39)
[2017-11-12] MEDS ORDERED: PIPERACILLIN/TAZOBACTAM 4.5 GM VIAL IVPB ONE (16:39)
[2017-11-12] MEDS: PIPERACILLIN/TAZOB 4.5 GM 4.5 GM in DEXTROSE 5%-WATER 100 ML IVPB SCH (17:27)
[2017-11-12] MEDS ORDERED: PIPERACILLIN/TAZOB 4.5 GM 4.5 GM in DEXTROSE 5%-WATER 100 ML IVPB SCH (18:00)
[2017-11-12] MEDS ORDERED: ceFAZolin 2 GRAM PREMIX BAG IVPB SCH (18:00)
[2017-11-13] MEDS ORDERED: DEXTROSE 5%-WATER 100 ML IVPB ONE ×3 (02:17→17:07)
[2017-11-13] MEDS ORDERED: PIPERACILLIN/TAZOBACTAM 4.5 GM VIAL IVPB ONE ×3 (02:17→17:07)
[2017-11-13] MEDS: PIPERACILLIN/TAZOB 4.5 GM 4.5 GM in DEXTROSE 5%-WATER 100 ML IVPB SCH ×3 (02:21→17:13)
[2017-11-13] MEDS ORDERED: LACTATED RINGERS SOLUTION 1,000 ML/1,000 ML INFUS.BAG IV SCH (02:30)
[2017-11-13] MEDS: ACETAMINOPHEN 1000 MG/100 ML VIAL (NON FORMULARY) IVPB SCH ×2 (03:19→08:07)
[2017-11-13 07:28] LABS: BASO % 0.3 % (0-2.0); EOS % 1.3 % (0-4.5); HEMATOCRIT 30.8 % (32.4-45.2); HEMOGLOBIN 10.5 GM/dL (10.7-15.3); LYMPH % 21.4 % (8-40); MCH 30.8 pg (25.7-33.7); MCHC 34.1 g/dl (32.0-36.0); MEAN CELL VOLUME 90.4 fl (80-96); MEAN PLT VOLUME 7.9 fl (7.5-11.1); MONO % 4.7 % (3.8-10.2); NEUT % 72.3 % (42.8-82.8); PLATELET COUNT 210 K/MM3 (134-434); RBC 3.41 M/mm3 (3.60-5.2); WHITE BLOOD COUNT 7.3 K/mm3 (4.0-10.0)
[2017-11-13 08:12] LABS: CHLORIDE 107 mmol/L (98-107); POTASSIUM 3.5 mmol/L (3.5-5.1); SODIUM 140 mmol/L (136-145)
[2017-11-13 08:25] LABS: ALBUMIN 2.7 g/dl (3.4-5.0); ALK PHOS 149 U/L (45-117); AMYLASE 417 U/L (25-115); ANION GAP 13 (8-16); BILIRUBIN,DIRECT 3.5 mg/dL (0.0-0.2); BILIRUBIN,TOTAL 4.1 mg/dL (0.2-1.0); BLOOD UREA NITROGEN 6 mg/dL (7-18); CALCIUM 8.1 mg/dL (8.5-10.1); CO2 20 mmol/L (21-32); CREATININE 0.6 mg/dL (0.55-1.02); GLUCOSE,RANDOM 76 mg/dL (74-106); SGOT/AST 153 U/L (15-37); SGPT/ALT 373 U/L (12-78); TOT PROT 5.5 g/dl (6.4-8.2)
[2017-11-13 08:28] LABS: LIPASE 4873 U/L (73-393)
--- NOTE | 2017-11-13 10:13 | PN ---
Progress Note, Physician History of Present Illness: Pt with biliary colic and choledocholithiasis, had ERCP yesterday with GI with extraction of stone and multiple fragments from cbd with sphincterotomy. Seen and examined in bed on floor. Pt reports feeling much better, but has headache. Responded some to Tylenol, but still there. She admits to 1-2 cups coffee daily usually. Resting comfortably. Nurse Carmen Mann facilitated conversation in Albanian at bedside. - Current Medication List Current Medications: Active Medications Acetaminophen (Ofirmev Injection -) 1,000 mg IVPB Q6H ZOILA Stop: 11/13/17 21:01 Last Admin: 11/13/17 08:07 Dose: 1,000 mg Piperacillin Sod/Tazobactam (Sod 4.5 gm/ Dextrose) 100 mls @ 200 mls/hr IVPB Q8H-IV ZOILA; Protocol Last Admin: 11/13/17 09:37 Dose: 200 mls/hr Ketorolac Tromethamine (Toradol Injection -) 30 mg IVPUSH Q6H PRN PRN Reason: PAIN LEVEL 7 - 10 Stop: 11/16/17 19:46 Last Admin: 11/11/17 20:35 Dose: 30 mg Ondansetron HCl (Zofran Injection) 4 mg IVPUSH Q6H PRN PRN Reason: NAUSEA - Objective Vital Signs: Vital Signs Temperature 98.4 F 11/13/17 06:49 Pulse Rate 68 11/13/17 06:49 Respiratory Rate 16 11/13/17 06:49 Blood Pressure 110/61 11/13/17 06:49 O2 Sat by Pulse Oximetry (%) 100 11/12/17 21:00 Constitutional: Yes: Well Nourished, No Distress, Calm Eyes: Yes: Conjunctiva Clear, EOM Intact. No: Sclera Icterus HENT: Yes: Atraumatic, Normocephalic Cardiovascular: Yes: Regular Rate and Rhythm Respiratory: Yes: Regular, CTA Bilaterally Gastrointestinal: Yes: Normal Bowel Sounds (slightly decreased), Soft, Tenderness (mild RUQ and epigastric to deep palpation, no guarding or rebound). No: Distention Musculoskeletal: No: Joint Stiffness, Joint Swelling Extremities: No: Cool, Cyanosis Integumentary: No: Jaundice, Rash Neurological: Yes: Alert, Oriented Labs: CBC, BMP 11/13/17 06:00 11/13/17 06:00 CMP Sodium 140 mmol/L (136-145) 11/13/17 06:00 Potassium 3.5 mmol/L (3.5-5.1) 11/13/17 06:00 Chloride 107 mmol/L (98-107) 11/13/17 06:00 Carbon Dioxide 20 mmol/L (21-32) L 11/13/17 06:00 Anion Gap 13 (8-16) 11/13/17 06:00 BUN 6 mg/dL (7-18) L 11/13/17 06:00 Creatinine 0.6 mg/dL (0.55-1.02) 11/13/17 06:00 Creat Clearance w eGFR > 60 (>60) 11/13/17 06:00 Random Glucose 76 mg/dL (74-106) 11/13/17 06:00 Calcium 8.1 mg/dL (8.5-10.1) L 11/13/17 06:00 Total Bilirubin 4.1 mg/dL (0.2-1.0) H 11/13/17 06:00 Direct Bilirubin 3.5 mg/dL (0.0-0.2) H 11/13/17 06:00 AST 153 U/L (15-37) H 11/13/17 06:00 ALT 373 U/L (12-78) H 11/13/17 06:00 Alkaline Phosphatase 149 U/L (45-117) H D 11/13/17 06:00 C-Reactive Protein 0.8 MG/DL (0.00-0.3) H 11/13/17 06:00 Total Protein 5.5 g/dl (6.4-8.2) L 11/13/17 06:00 Albumin 2.7 g/dl (3.4-5.0) L 11/13/17 06:00 Total Amylase 417 U/L (25-115) H 11/13/17 06:00 Lipase 4873 U/L (73-393) H 11/13/17 06:00 Serum , Qual Negative 11/11/17 14:58 LFTs coming down slowly, bili still 4.1 lipase up significantly - opst-ERCP pancreatitis Problem List - Problems (1) Calculus of gallbladder and bile duct without cholecystitis or obstruction Assessment/Plan: pt with choledocholithiasis, biliary colic ERCP done with stone and fragments retrieved, sphincterotomy done labs show pancreatitis, small improvement in LFTs keep NPO/IVF today change fluids to maintenance pain meds prn encourage OOB/ambulation continue Zosyn per ID will defer OR until enzymes closer to normal possible clears tomorrow if labs better and no pain/tenderness plan lap poss open baldomero for Saturday am presuming labs improve Code(s): K80.70 - CALCULUS OF GB AND BILE DUCT W/O CHOLECYST W/O OBSTRUCTION (2) Other acute pancreatitis without necrosis or infection Assessment/Plan: increased lipase post ERCP Code(s): K85.80 - OTHER ACUTE PANCREATITIS WITHOUT NECROSIS OR INFECTION (3) Epigastric pain Assessment/Plan: resolved but with mild residual tenderness Code(s): R10.13 - EPIGASTRIC PAIN (4) Elevated liver function tests Assessment/Plan: improving Code(s): R94.5 - ABNORMAL RESULTS OF LIVER FUNCTION STUDIES
[2017-11-13] MEDS ORDERED: IBUPROFEN 800 MG/8 ML IJ IVPB PRN (10:23)
[2017-11-13] MEDS ORDERED: ACETAMINOPHEN 1000 MG/100 ML VIAL (NON FORMULARY) IVPB PRN (10:24)
[2017-11-13] MEDS: D5-1/2NS+20 MEQ KCL - 20 MEQ/1,000 ML INFUS.BAG IV SCH (11:05)
[2017-11-13] MEDS: ONDANSETRON 4 MG/2 ML VIAL IVPUSH PRN ×2 (11:05→22:47)
--- NOTE | 2017-11-13 13:42 | PN ---
Progress Note, Physician History of Present Illness: post ercp stable jump in lipase surgery on case plan for choley bili coming down - Current Medication List Current Medications: Active Medications Acetaminophen (Ofirmev Injection -) 1,000 mg IVPB Q6H PRN PRN Reason: Pain Level 1-6 Stop: 11/13/17 21:01 Piperacillin Sod/Tazobactam (Sod 4.5 gm/ Dextrose) 100 mls @ 200 mls/hr IVPB Q8H-IV ZOILA; Protocol Last Admin: 11/13/17 09:37 Dose: 200 mls/hr Potassium Chloride/Dextrose/Sod Cl (D5-1/2ns+20 Meq Kcl -) 20 meq in 1,000 mls @ 100 mls/hr IV ASDIR ZOILA Last Admin: 11/13/17 11:05 Dose: 100 mls/hr Ibuprofen (Caldolor Injection -) 800 mg IVPB Q8H PRN PRN Reason: PAIN LEVEL 7 - 10 Last Admin: 11/13/17 11:05 Dose: 800 mg Ketorolac Tromethamine (Toradol Injection -) 30 mg IVPUSH Q6H PRN PRN Reason: PAIN LEVEL 7 - 10 Stop: 11/16/17 19:46 Last Admin: 11/11/17 20:35 Dose: 30 mg Ondansetron HCl (Zofran Injection) 4 mg IVPUSH Q6H PRN PRN Reason: NAUSEA Last Admin: 11/13/17 11:05 Dose: 4 mg - Objective Vital Signs: Vital Signs Temperature 98.2 F 11/13/17 10:00 Pulse Rate 77 11/13/17 10:00 Respiratory Rate 16 11/13/17 10:00 Blood Pressure 102/53 11/13/17 10:00 O2 Sat by Pulse Oximetry (%) 98 11/13/17 09:00 Constitutional: Yes: No Distress, Calm Cardiovascular: Yes: Regular Rate and Rhythm Respiratory: Yes: Regular, CTA Bilaterally Gastrointestinal: Yes: Normal Bowel Sounds, Soft Musculoskeletal: Yes: WNL Extremities: Yes: WNL Neurological: Yes: Alert, Oriented Psychiatric: Yes: Alert, Oriented Labs: CBC, BMP 11/13/17 06:00 11/13/17 06:00 INR, PTT INR 1.12 (0.82-1.09) 11/11/17 17:32 Assessment/Plan Problem List - Problems (1) Calculus of gallbladder without cholecystitis without obstruction. Code(s): K80.20 - CALCULUS OF GALLBLADDER W/O CHOLECYSTITIS W/O OBSTRUCTION (2) Epigastric pain Code(s): R10.13 - EPIGASTRIC PAIN (3) Elevated liver function tests Code(s): R94.5 - ABNORMAL RESULTS OF LIVER FUNCTION STUDIES post op ercp now with increased lipase plan continue abx close watch on lipase npo hydration rest as per surgery
--- NOTE | 2017-11-13 16:03 | PN ---
Progress Note, Physician History of Present Illness: Elevated lipase. Liver chem. improving. Afebrile, normal VS. C/o mild nausea, otherwise, comfortable and pain-free. Benign abdomen on exam. On clears. - Current Medication List Current Medications: Active Medications Acetaminophen (Ofirmev Injection -) 1,000 mg IVPB Q6H PRN PRN Reason: Pain Level 1-6 Stop: 11/13/17 21:01 Piperacillin Sod/Tazobactam (Sod 4.5 gm/ Dextrose) 100 mls @ 200 mls/hr IVPB Q8H-IV ZOILA; Protocol Last Admin: 11/13/17 09:37 Dose: 200 mls/hr Potassium Chloride/Dextrose/Sod Cl (D5-1/2ns+20 Meq Kcl -) 20 meq in 1,000 mls @ 100 mls/hr IV ASDIR ZOILA Last Admin: 11/13/17 11:05 Dose: 100 mls/hr Ibuprofen (Caldolor Injection -) 800 mg IVPB Q8H PRN PRN Reason: PAIN LEVEL 7 - 10 Last Admin: 11/13/17 11:05 Dose: 800 mg Ketorolac Tromethamine (Toradol Injection -) 30 mg IVPUSH Q6H PRN PRN Reason: PAIN LEVEL 7 - 10 Stop: 11/16/17 19:46 Last Admin: 11/11/17 20:35 Dose: 30 mg Ondansetron HCl (Zofran Injection) 4 mg IVPUSH Q6H PRN PRN Reason: NAUSEA Last Admin: 11/13/17 11:05 Dose: 4 mg - Objective Vital Signs: Vital Signs Temperature 99 F 11/13/17 15:38 Pulse Rate 74 11/13/17 15:38 Respiratory Rate 20 11/13/17 15:38 Blood Pressure 136/115 11/13/17 15:38 O2 Sat by Pulse Oximetry (%) 98 11/13/17 09:00 Constitutional: Yes: Well Nourished, No Distress, Calm Eyes: No: Sclera Icterus HENT: Yes: Atraumatic Neck: Yes: Supple Cardiovascular: Yes: Regular Rate and Rhythm Respiratory: Yes: Regular Gastrointestinal: Yes: Normal Bowel Sounds, Soft. No: Ascites, Distention, Melena, Rectal Bleeding, Tenderness, Tenderness, Epigastrium, Tenderness, Rebound, Vomiting Neurological: Yes: Alert, Oriented Labs: CBC, BMP 11/13/17 06:00 11/13/17 06:00 INR, PTT INR 1.12 (0.82-1.09) 11/11/17 17:32 Laboratory Last Values WBC 7.3 K/mm3 (4.0-10.0) 11/13/17 06:00 RBC 3.41 M/mm3 (3.60-5.2) L 11/13/17 06:00 Hgb 10.5 GM/dL (10.7-15.3) L 11/13/17 06:00 Hct 30.8 % (32.4-45.2) L 11/13/17 06:00 MCV 90.4 fl (80-96) 11/13/17 06:00 MCH 30.8 pg (25.7-33.7) 11/13/17 06:00 MCHC 34.1 g/dl (32.0-36.0) 11/13/17 06:00 RDW 13.0 % (11.6-15.6) 11/13/17 06:00 Plt Count 210 K/MM3 (134-434) 11/13/17 06:00 MPV 7.9 fl (7.5-11.1) 11/13/17 06:00 Absolute Neuts (auto) 5.2 # 11/13/17 06:00 Neutrophils % 72.3 % (42.8-82.8) 11/13/17 06:00 Lymphocytes % 21.4 % (8-40) D 11/13/17 06:00 Monocytes % 4.7 % (3.8-10.2) 11/13/17 06:00 Eosinophils % 1.3 % (0-4.5) D 11/13/17 06:00 Basophils % 0.3 % (0-2.0) 11/13/17 06:00 Nucleated RBC % 0 % (0-0) 11/13/17 06:00 PT with INR 12.70 SEC (9.7-13.0) 11/11/17 17:32 INR 1.12 (0.82-1.09) 11/11/17 17:32 Sodium 140 mmol/L (136-145) 11/13/17 06:00 Potassium 3.5 mmol/L (3.5-5.1) 11/13/17 06:00 Chloride 107 mmol/L (98-107) 11/13/17 06:00 Carbon Dioxide 20 mmol/L (21-32) L 11/13/17 06:00 Anion Gap 13 (8-16) 11/13/17 06:00 BUN 6 mg/dL (7-18) L 11/13/17 06:00 Creatinine 0.6 mg/dL (0.55-1.02) 11/13/17 06:00 Creat Clearance w eGFR > 60 (>60) 11/13/17 06:00 Random Glucose 76 mg/dL (74-106) 11/13/17 06:00 Calcium 8.1 mg/dL (8.5-10.1) L 11/13/17 06:00 Total Bilirubin 4.1 mg/dL (0.2-1.0) H 11/13/17 06:00 Direct Bilirubin 3.5 mg/dL (0.0-0.2) H 11/13/17 06:00 AST 153 U/L (15-37) H 11/13/17 06:00 ALT 373 U/L (12-78) H 11/13/17 06:00 Alkaline Phosphatase 149 U/L (45-117) H D 11/13/17 06:00 C-Reactive Protein 0.8 MG/DL (0.00-0.3) H 11/13/17 06:00 Total Protein 5.5 g/dl (6.4-8.2) L 11/13/17 06:00 Albumin 2.7 g/dl (3.4-5.0) L 11/13/17 06:00 Total Amylase 417 U/L (25-115) H 11/13/17 06:00 Lipase 4873 U/L (73-393) H 11/13/17 06:00 Serum , Qual Negative 11/11/17 14:58 Urine Color Yellow 11/11/17 14:58 Urine Appearance Clear 11/11/17 14:58 Urine pH 6.0 (5.0-8.0) 11/11/17 14:58 Ur Specific [place] 1.003 (1.001-1.035) 11/11/17 14:58 Urine Protein Negative (NEGATIVE) 11/11/17 14:58 Urine Glucose (UA) Negative (NEGATIVE) 11/11/17 14:58 Urine Ketones Trace (NEGATIVE) H 11/11/17 14:58 Urine Blood 2+ (NEGATIVE) H 11/11/17 14:58 Urine Nitrite Negative (NEGATIVE) 11/11/17 14:58 Urine Bilirubin Negative (<2.0 mg/dL) 11/11/17 14:58 Urine Urobilinogen Negative mg/dL (0.2-1.0) 11/11/17 14:58 Ur Leukocyte Esterase Negative (NEGATIVE) 11/11/17 14:58 Urine WBC (Auto) 3-5 /hpf (3-5) 11/11/17 14:58 Urine RBC (Auto) 10-15 /hpf (0-3) 11/11/17 14:58 Blood Type AB POSITIVE 11/11/17 17:32 Antibody Screen Negative 11/11/17 17:32 Problem List - Problems (1) Status post endoscopic retrograde cholangiopancreatography Code(s): Z98.890 - OTHER SPECIFIED POSTPROCEDURAL STATES (2) Pancreatitis Code(s): K85.90 - ACUTE PANCREATITIS WITHOUT NECROSIS OR INFECTION, UNSP (3) Calculus of gallbladder and bile duct without cholecystitis or obstruction Code(s): K80.70 - CALCULUS OF GB AND BILE DUCT W/O CHOLECYST W/O OBSTRUCTION (4) Calculus of gallbladder without cholecystitis without obstruction Code(s): K80.20 - CALCULUS OF GALLBLADDER W/O CHOLECYSTITIS W/O OBSTRUCTION (5) Cholelithiasis Code(s): K80.20 - CALCULUS OF GALLBLADDER W/O CHOLECYSTITIS W/O OBSTRUCTION Qualifiers: Cholelithiasis location: gallbladder Cholecystitis presence: without cholecystitis Biliary obstruction: without biliary obstruction Qualified Code(s): K80.20 - Calculus of gallbladder without cholecystitis without obstruction Assessment/Plan Post-ERCP, mild pancreatitis. On clears. Benign abdomen on exam. Afebrile. Improving liver chem. Normal WBC. Continue current care, pain RX and antiemetic PRN, liquid diet. Liver chem in am.
[2017-11-14] MEDS ORDERED: PIPERACILLIN/TAZOBACTAM 4.5 GM VIAL IVPB ONE ×3 (01:42→17:11)
[2017-11-14] MEDS ORDERED: DEXTROSE 5%-WATER 100 ML IVPB ONE ×3 (01:42→17:12)
[2017-11-14] MEDS: PIPERACILLIN/TAZOB 4.5 GM 4.5 GM in DEXTROSE 5%-WATER 100 ML IVPB SCH ×3 (01:45→17:14)
[2017-11-14 08:36] LABS: BASO % 0.9 % (0-2.0); EOS % 6.1 % (0-4.5); HEMATOCRIT 31.2 % (32.4-45.2); HEMOGLOBIN 10.7 GM/dL (10.7-15.3); LYMPH % 45.6 % (8-40); MCH 30.8 pg (25.7-33.7); MCHC 34.3 g/dl (32.0-36.0); MEAN CELL VOLUME 89.8 fl (80-96); MEAN PLT VOLUME 7.6 fl (7.5-11.1); MONO % 6.8 % (3.8-10.2); NEUT % 40.6 % (42.8-82.8); PLATELET COUNT 205 K/MM3 (134-434); RBC 3.47 M/mm3 (3.60-5.2); RDW 13.1 % (11.6-15.6); WHITE BLOOD COUNT 5.2 K/mm3 (4.0-10.0)
[2017-11-14 09:45] LABS: CHLORIDE 108 mmol/L (98-107); POTASSIUM 3.5 mmol/L (3.5-5.1); SODIUM 141 mmol/L (136-145)
[2017-11-14 09:59] LABS: ALBUMIN 2.9 g/dl (3.4-5.0); ALK PHOS 154 U/L (45-117); ANION GAP 7 (8-16); BILIRUBIN,TOTAL 1.3 mg/dL (0.2-1.0); BLOOD UREA NITROGEN 4 mg/dL (7-18); CALCIUM 8.3 mg/dL (8.5-10.1); CO2 26 mmol/L (21-32); CREATININE 0.6 mg/dL (0.55-1.02); GLUCOSE,RANDOM 123 mg/dL (74-106); LIPASE 2157 U/L (73-393); SGOT/AST 95 U/L (15-37); SGPT/ALT 301 U/L (12-78); TOT PROT 5.8 g/dl (6.4-8.2)
--- NOTE | 2017-11-14 10:40 | PN ---
Progress Note, Physician History of Present Illness: Pt with biliary colic and choledocholithiasis, had ERCP with extraction of stone and multiple fragments from cbd with sphincterotomy. Seen and examined in bed on floor. Pt reports feeling much better, denies pain. Resting comfortably. Nurse Chema Yeager facilitated conversation in Vietnamese at bedside. Pt would like to eat. - Current Medication List Current Medications: Active Medications Piperacillin Sod/Tazobactam (Sod 4.5 gm/ Dextrose) 100 mls @ 200 mls/hr IVPB Q8H-IV ZOILA; Protocol Last Admin: 11/14/17 09:28 Dose: 200 mls/hr Potassium Chloride/Dextrose/Sod Cl (D5-1/2ns+20 Meq Kcl -) 20 meq in 1,000 mls @ 100 mls/hr IV ASDIR ZOILA Last Admin: 11/13/17 11:05 Dose: 100 mls/hr Ibuprofen (Caldolor Injection -) 800 mg IVPB Q8H PRN PRN Reason: PAIN LEVEL 7 - 10 Last Admin: 11/13/17 11:05 Dose: 800 mg Ondansetron HCl (Zofran Injection) 4 mg IVPUSH Q6H PRN PRN Reason: NAUSEA Last Admin: 11/13/17 22:47 Dose: 4 mg - Objective Vital Signs: Vital Signs Temperature 98.2 F 11/14/17 05:57 Pulse Rate 73 11/14/17 05:57 Respiratory Rate 18 11/14/17 05:57 Blood Pressure 119/64 11/14/17 05:57 O2 Sat by Pulse Oximetry (%) 99 11/13/17 21:00 Constitutional: Yes: Well Nourished, No Distress, Calm Eyes: Yes: Conjunctiva Clear, EOM Intact. No: Sclera Icterus HENT: Yes: Atraumatic, Normocephalic Cardiovascular: Yes: Regular Rate and Rhythm Respiratory: Yes: Regular, CTA Bilaterally Gastrointestinal: Yes: Normal Bowel Sounds, Soft. No: Distention, Tenderness, Tenderness, Epigastrium Extremities: No: Cool, Cyanosis Integumentary: No: Jaundice, Rash Neurological: Yes: Alert, Oriented Labs: CBC, BMP 11/14/17 08:17 11/14/17 08:17 CMP Sodium 141 mmol/L (136-145) 11/14/17 08:17 Potassium 3.5 mmol/L (3.5-5.1) 11/14/17 08:17 Chloride 108 mmol/L (98-107) H 11/14/17 08:17 Carbon Dioxide 26 mmol/L (21-32) 11/14/17 08:17 Anion Gap 7 (8-16) L 11/14/17 08:17 BUN 4 mg/dL (7-18) L 11/14/17 08:17 Creatinine 0.6 mg/dL (0.55-1.02) 11/14/17 08:17 Creat Clearance w eGFR > 60 (>60) 11/14/17 08:17 Random Glucose 123 mg/dL (74-106) H 11/14/17 08:17 Calcium 8.3 mg/dL (8.5-10.1) L 11/14/17 08:17 Total Bilirubin 1.3 mg/dL (0.2-1.0) H D 11/14/17 08:17 Direct Bilirubin 1.0 mg/dL (0.0-0.2) H 11/14/17 08:17 AST 95 U/L (15-37) H 11/14/17 08:17 ALT 301 U/L (12-78) H 11/14/17 08:17 Alkaline Phosphatase 154 U/L (45-117) H 11/14/17 08:17 C-Reactive Protein 0.6 MG/DL (0.00-0.3) H 11/14/17 08:17 Total Protein 5.8 g/dl (6.4-8.2) L 11/14/17 08:17 Albumin 2.9 g/dl (3.4-5.0) L 11/14/17 08:17 Total Amylase 417 U/L (25-115) H 11/13/17 06:00 Lipase 2157 U/L (73-393) H 11/14/17 08:17 Serum , Qual Negative 11/11/17 14:58 bili/LFTs decreasing lipase down by half, still elevated Problem List - Problems (1) Calculus of gallbladder and bile duct without cholecystitis or obstruction Assessment/Plan: pt with choledocholithiasis, biliary colic ERCP done with stone and fragments retrieved, sphincterotomy done labs show pancreatitis, lipase coming down slowly LFTs normalizing, bili down to 1.3 clear liquids ok today NPO after midnight for OR in am, plan for 11:00 pain meds prn encourage OOB/ambulation continue Zosyn per ID Code(s): K80.70 - CALCULUS OF GB AND BILE DUCT W/O CHOLECYST W/O OBSTRUCTION (2) Other acute pancreatitis without necrosis or infection Assessment/Plan: increased lipase post ERCP down by half today, still 2100 Code(s): K85.80 - OTHER ACUTE PANCREATITIS WITHOUT NECROSIS OR INFECTION (3) Epigastric pain Assessment/Plan: resolved Code(s): R10.13 - EPIGASTRIC PAIN (4) Elevated liver function tests Assessment/Plan: improving Code(s): R94.5 - ABNORMAL RESULTS OF LIVER FUNCTION STUDIES
[2017-11-14] MEDS ORDERED: ACETAMINOPHEN 325 MG TABLET (FP) PO PRN (10:41)
[2017-11-14] MEDS ORDERED: IBUPROFEN 600 MG TABLET (FP) PO PRN (10:42)
--- NOTE | 2017-11-14 11:15 | PN ---
Progress Note, Physician History of Present Illness: patient stable no complaints bili and lipase trending down patient in no discomfort - Current Medication List Current Medications: Active Medications Acetaminophen (Tylenol -) 650 mg PO Q6H PRN PRN Reason: PAIN LEVEL 1-5 Piperacillin Sod/Tazobactam (Sod 4.5 gm/ Dextrose) 100 mls @ 200 mls/hr IVPB Q8H-IV ZOILA; Protocol Last Admin: 11/14/17 09:28 Dose: 200 mls/hr Potassium Chloride/Dextrose/Sod Cl (D5-1/2ns+20 Meq Kcl -) 20 meq in 1,000 mls @ 100 mls/hr IV ASDIR ZOILA Last Admin: 11/13/17 11:05 Dose: 100 mls/hr Ibuprofen (Motrin -) 600 mg PO Q6H PRN PRN Reason: PAIN LEVEL 6-10 Ondansetron HCl (Zofran Injection) 4 mg IVPUSH Q6H PRN PRN Reason: NAUSEA Last Admin: 11/13/17 22:47 Dose: 4 mg - Objective Vital Signs: Vital Signs Temperature 98.5 F 11/14/17 10:00 Pulse Rate 52 L 11/14/17 10:00 Respiratory Rate 18 11/14/17 10:00 Blood Pressure 117/69 11/14/17 10:00 O2 Sat by Pulse Oximetry (%) 99 11/14/17 09:00 Constitutional: Yes: No Distress, Calm Cardiovascular: Yes: Regular Rate and Rhythm Respiratory: Yes: Regular, CTA Bilaterally Gastrointestinal: Yes: Normal Bowel Sounds, Soft Musculoskeletal: Yes: WNL Extremities: Yes: WNL Neurological: Yes: Alert, Oriented Psychiatric: Yes: Alert, Oriented Labs: CBC, BMP 11/14/17 08:17 11/14/17 08:17 INR, PTT INR 1.12 (0.82-1.09) 11/11/17 17:32 Assessment/Plan Problem List - Problems (1) Calculus of gallbladder without cholecystitis without obstruction. Code(s): K80.20 - CALCULUS OF GALLBLADDER W/O CHOLECYSTITIS W/O OBSTRUCTION (2) Epigastric pain Code(s): R10.13 - EPIGASTRIC PAIN (3) Elevated liver function tests Code(s): R94.5 - ABNORMAL RESULTS OF LIVER FUNCTION STUDIES post op ercp now with increased lipase plan continue abx probably for surgery tomorrow monitor for fever and lipase
[2017-11-14] MEDS: D5-1/2NS+20 MEQ KCL - 20 MEQ/1,000 ML INFUS.BAG IV SCH (11:45)
--- NOTE | 2017-11-14 21:24 | PN ---
GI Progress Note Subjective: GI post ERCP NOte: Pain free. Jaundice resolved. For lap choly tomorrow - Objective Vital Signs: Vital Signs Temperature 98.8 F 11/14/17 20:32 Pulse Rate 56 L 11/14/17 20:32 Respiratory Rate 20 11/14/17 20:44 Blood Pressure 124/86 11/14/17 20:32 O2 Sat by Pulse Oximetry (%) 100 11/14/17 20:44 Laboratory Tests 11/11/17 11/12/17 11/13/17 14:58 06:15 06:00 Total Bilirubin 5.5 H 4.8 H 4.1 H AST 586 H ALT 936 H Alkaline Phosphatase 198 H 149 H D Total Amylase 417 H Lipase 4873 H 11/14/17 08:17 Total Bilirubin 1.3 H D AST 95 H ALT 301 H Alkaline Phosphatase 154 H Total Amylase Lipase 2157 H Constitutional: Calm ...Auscultate: Yes: Normoactive Bowel Sounds ...Palpate: Yes: Soft, Other (nontender) Labs: CBC, BMP 11/14/17 08:17 11/14/17 08:17 INR, PTT INR 1.12 (0.82-1.09) 11/11/17 17:32 Problem List - Problems (1) Elevated liver function tests Assessment/Plan: Resolved jaundice due to choledocholithiasis. Agree with plan for GB surgery tomorrow. Code(s): R94.5 - ABNORMAL RESULTS OF LIVER FUNCTION STUDIES (2) Abdominal pain Code(s): R10.9 - UNSPECIFIED ABDOMINAL PAIN Qualifiers: Abdominal location: epigastric Qualified Code(s): R10.13 - Epigastric pain (3) Calculus of gallbladder without cholecystitis without obstruction Code(s): K80.20 - CALCULUS OF GALLBLADDER W/O CHOLECYSTITIS W/O OBSTRUCTION
[2017-11-15] MEDS ORDERED: PIPERACILLIN/TAZOBACTAM 4.5 GM VIAL IVPB ONE ×3 (01:00→18:14)
[2017-11-15] MEDS ORDERED: DEXTROSE 5%-WATER 100 ML IVPB ONE ×3 (01:00→18:15)
[2017-11-15] MEDS: PIPERACILLIN/TAZOB 4.5 GM 4.5 GM in DEXTROSE 5%-WATER 100 ML IVPB SCH ×3 (01:12→18:35)
[2017-11-15] MEDS: D5-1/2NS+20 MEQ KCL - 20 MEQ/1,000 ML INFUS.BAG IV SCH ×2 (02:16→17:55)
[2017-11-15 06:57] LABS: BASO % 0.8 % (0-2.0); EOS % 5.4 % (0-4.5); HEMOGLOBIN 11.3 GM/dL (10.7-15.3); LYMPH % 46.2 % (8-40); MCH 30.8 pg (25.7-33.7); MCHC 34.2 g/dl (32.0-36.0); MEAN CELL VOLUME 90.1 fl (80-96); MEAN PLT VOLUME 7.7 fl (7.5-11.1); NEUT % 39.6 % (42.8-82.8); PLATELET COUNT 231 K/MM3 (134-434); RBC 3.66 M/mm3 (3.60-5.2); RDW 12.9 % (11.6-15.6); WHITE BLOOD COUNT 5.2 K/mm3 (4.0-10.0)
[2017-11-15 08:23] LABS: ANION GAP 7 (8-16); BLOOD UREA NITROGEN 3 mg/dL (7-18); CALCIUM 8.7 mg/dL (8.5-10.1); CHLORIDE 104 mmol/L (98-107); CO2 29 mmol/L (21-32); GLUCOSE,RANDOM 124 mg/dL (74-106); POTASSIUM 3.3 mmol/L (3.5-5.1); SODIUM 140 mmol/L (136-145)
[2017-11-15 08:27] LABS: ALK PHOS 143 U/L (45-117); BILIRUBIN,TOTAL 1.1 mg/dL (0.2-1.0); CREATININE 0.5 mg/dL (0.55-1.02); LIPASE 646 U/L (73-393); SGOT/AST 162 U/L (15-37); SGPT/ALT 330 U/L (12-78); TOT PROT 6.2 g/dl (6.4-8.2)
[2017-11-15] MEDS ORDERED: fentaNYL CITRATE 250 MCG/5 ML VIAL ONE (08:44)
[2017-11-15] MEDS ORDERED: PROPOFOL 20 ML ONE ×2 (08:44→14:21)
[2017-11-15] MEDS ORDERED: ROCURONIUM BROMIDE 50 MG/5 ML VIAL ONE (08:44)
[2017-11-15] MEDS ORDERED: DEXAMETHASONE SOD PHOSPHATE 4 MG/1 ML VIAL ONE ×3 (08:44→15:37)
[2017-11-15] MEDS ORDERED: MIDAZOLAM HCL 2 MG/2 ML SINGLE DOSE VIAL ONE ×2 (08:45→14:12)
--- NOTE | 2017-11-15 10:49 | PN ---
Progress Note, Physician History of Present Illness: patient doing well no complaints for or today - Current Medication List Current Medications: Active Medications Acetaminophen (Tylenol -) 650 mg PO Q6H PRN PRN Reason: PAIN LEVEL 1-5 Last Admin: 11/14/17 23:16 Dose: 650 mg Piperacillin Sod/Tazobactam (Sod 4.5 gm/ Dextrose) 100 mls @ 200 mls/hr IVPB Q8H-IV ZOIL[facility]; Protocol Last Admin: 11/15/17 09:47 Dose: 200 mls/hr Potassium Chloride/Dextrose/Sod Cl (D5-1/2ns+20 Meq Kcl -) 20 meq in 1,000 mls @ 100 mls/hr IV ASDIR ZOILA Last Admin: 11/15/17 02:16 Dose: 100 mls/hr Ibuprofen (Motrin -) 600 mg PO Q6H PRN PRN Reason: PAIN LEVEL 6-10 Ondansetron HCl (Zofran Injection) 4 mg IVPUSH Q6H PRN PRN Reason: NAUSEA Last Admin: 11/13/17 22:47 Dose: 4 mg - Objective Vital Signs: Vital Signs Temperature 98.9 F 11/15/17 06:00 Pulse Rate 51 L 11/15/17 06:00 Respiratory Rate 20 11/15/17 06:00 Blood Pressure 124/60 11/15/17 06:00 O2 Sat by Pulse Oximetry (%) 100 11/14/17 20:44 Constitutional: Yes: No Distress, Calm Cardiovascular: Yes: Regular Rate and Rhythm Respiratory: Yes: Regular, CTA Bilaterally Gastrointestinal: Yes: Normal Bowel Sounds, Soft Musculoskeletal: Yes: WNL Extremities: Yes: WNL Neurological: Yes: Alert, Oriented Psychiatric: Yes: Alert, Oriented Labs: CBC, BMP 11/15/17 06:20 11/15/17 06:20 INR, PTT INR 1.12 (0.82-1.09) 11/11/17 17:32 Assessment/Plan Problem List - Problems (1) Calculus of gallbladder without cholecystitis without obstruction. Code(s): K80.20 - CALCULUS OF GALLBLADDER W/O CHOLECYSTITIS W/O OBSTRUCTION (2) Epigastric pain Code(s): R10.13 - EPIGASTRIC PAIN (3) Elevated liver function tests Code(s): R94.5 - ABNORMAL RESULTS OF LIVER FUNCTION STUDIES post op ercp now with increased lipase plan continue abx probably for surgery today monitor for fever and lipase
[2017-11-15] MEDS ORDERED: BENZOIN/ALOE VERA/STORAX/TOLU 58 ML BOTTLE ONE (13:57)
[2017-11-15] MEDS ORDERED: BUPIVACAINE HCL/PF 0.5% (5MG/ML) 10 ML VIAL ONE (13:57)
[2017-11-15] MEDS ORDERED: LIDOCAINE HCL/PF 2% SDV 5ML VIAL ONE (14:20)
[2017-11-15] MEDS ORDERED: BUPIVACAINE HCL/PF (5 MG/ML) 30 ML VIAL IJ ONE ×2 (14:58)
--- NOTE | 2017-11-15 16:15 | OP ---
Operative Note - Note: Operative Date: 11/15/17 Pre-Operative Diagnosis: symptomatic cholelithiasis, choledocholithiasis Operation: laparoscopic cholecystectomy Findings: edematous gallbladder, multiple stones, critical view identified Post-Operative Diagnosis: Other (same with chronic cholecystitis) Surgeon: Rosales Ying Floor Layer Apprentice: Abdi Samson Anesthesiologist/STATE TESTED NURSING ASSISTANT: Ivan Hernandez Anesthesia: General, Local (20ml 0.5% marcaine) Specimens Removed: gallbladder to pathology Estimated Blood Loss (mls): 15 Fluid Volume Replaced (mls): 1,000 (crystalloid) Operative Report Dictated: Yes
[2017-11-15] MEDS ORDERED: traMADol HCL 50 MG TABLET PO PRN ×2 (16:19→18:32)
[2017-11-15] MEDS ORDERED: IBUPROFEN 800 MG/8 ML IJ IVPB ONE ×2 (16:41→16:50)
[2017-11-15] MEDS ORDERED: ACETAMINOPHEN 325 MG TABLET (FP) PO SCH (18:00)
[2017-11-15] MEDS ORDERED: ONDANSETRON 4 MG/2 ML VIAL IVPUSH PRN (18:32)
[2017-11-15] MEDS ORDERED: D5-1/2NS+20 MEQ KCL - 20 MEQ/1,000 ML INFUS.BAG IV SCH (18:32)
[2017-11-15] MEDS ORDERED: IBUPROFEN 600 MG TABLET (FP) PO SCH (21:00)
[2017-11-15] MEDS: IBUPROFEN 600 MG TABLET (FP) PO SCH (21:35)
[2017-11-16] MEDS: ACETAMINOPHEN 325 MG TABLET (FP) PO SCH ×3 (01:22→11:44)
[2017-11-16] MEDS ORDERED: PIPERACILLIN/TAZOBACTAM 4.5 GM VIAL IVPB ONE ×2 (01:32→09:31)
[2017-11-16] MEDS ORDERED: DEXTROSE 5%-WATER 100 ML IVPB ONE ×2 (01:32→09:31)
[2017-11-16] MEDS: PIPERACILLIN/TAZOB 4.5 GM 4.5 GM in DEXTROSE 5%-WATER 100 ML IVPB SCH ×2 (01:46→09:39)
[2017-11-16] MEDS: IBUPROFEN 600 MG TABLET (FP) PO SCH ×2 (03:50→09:39)
[2017-11-16 13:44] VITALS: BP 129/83; PULSE 69; TEMP 98.6
--- NOTE | 2017-11-16 13:49 | DS ---
Physical Examination Vital Signs: Vital Signs Temperature 98.1 F 11/16/17 09:41 Pulse Rate 66 11/16/17 09:41 Respiratory Rate 18 11/16/17 09:41 Blood Pressure 114/67 11/16/17 09:41 O2 Sat by Pulse Oximetry (%) 100 11/16/17 09:00 Findings/Remarks: Pt seen ambulating in gage, examined in bed. Feeling well, states better. Has tolerated diet, voiding, pain controlled with Tylenol, ibuprofen last night, refused both this am because pain is minimal. Antibiotics finished. Ready to go home. Constitutional: Yes: Well Nourished, No Distress, Calm Eyes: Yes: Conjunctiva Clear, EOM Intact. No: Sclera Icterus HENT: Yes: Atraumatic, Normocephalic Cardiovascular: Yes: Regular Rate and Rhythm Respiratory: Yes: Regular, CTA Bilaterally Gastrointestinal: Yes: Normal Bowel Sounds, Soft, Tenderness (mild epigastric/ RUQ, mild incisional, no R/G), Tenderness, Epigastrium (mild). No: Distention ...Rectal Exam: Yes: Deferred Musculoskeletal: No: Joint Stiffness, Joint Swelling Extremities: No: Cool, Cyanosis Integumentary: Yes: Incision (x4 dressed). No: Jaundice, Rash Wound/Incision: Yes: Steri Strips (under dressings), Dressing Dry and Intact (x4 ; small spots of dried strikethrough on RUQ dressings). No: Dressing Removed Neurological: Yes: Alert, Oriented. No: Unsteady Gait Labs: no new labs Discharge Summary Reason For Visit: CHOLELITHIASIS Current Active Problems Abdominal pain (Acute) Calculus of gallbladder and bile duct without cholecystitis or obstruction ( Acute) Elevated liver function tests (Acute) Epigastric pain (Acute) Other acute pancreatitis without necrosis or infection (Acute) Status post endoscopic retrograde cholangiopancreatography (Acute) Procedures: Principal: laparoscopic cholecystectomy 11/15/17 Other Procedures: ERCP 11/12/17, Dr. Krueger/[facility] Course: 42yo F with h/o liposuction, and symptomatic cholelithiasis presented to ER with epigastric and RUQ pain associated with nausea and was found to have normal wbc and lipase but elevated LFTs. US showed gallstones with no signs cholecystitis but dilated cbd, and MRCP then showed likely sludge in CBD. Bilirubin remained elevated the next morning (5.5 down to 4.8), and GI took her for ERCP with extraction of a stone and multiple fragments from CBD, did sphincterotomy, and then she had mild pancreatitis the next day, with elevation of lipase to 4800 but minimal tenderness, so lap baldomero was deferred until Saturday. , she tolerated clear liquids, and LFTs and lipase decreased, but lipase was still 2100. It came down to 646 Saturday, and she was taken for uneventful laparoscopic cholecystectomy, after which she tolerated clears for dinner and diet today. She has been ambulating, voiding, and pain is controlled with nonnarcotic oral medications. She is discharged home to f/u in 2 weeks with surgery and PMD in 1-2 weeks as well. Time spent on discharge is 35 minutes. Condition: Good - Instructions Diet, Activity, Other Instructions: Postoperative instructions: You had a laparoscopic cholecystectomy on 11/15/[address] Rosales Ying of [facility]. You also had ERCP with removal of stones from your common bile duct and sphincterotomy by Dr. Dee Dee Krueger of Gastro[facility]ology on 11/12/17. You had mild pancreatitis after the procedure. Activity: Resume your usual activities gradually, but no heavy exertion or lifting more than 10-15 pounds for 1 month. Remove dressings 48 hours after surgery; sticky tapes underneath will fall off by themselves. You may shower daily starting then, just pat the incision areas dry. No bath or swimming until skin incisions have completely healed. Eat lightly at first, but advance to your usual diet as tolerated. Pain: For pain, you may use and alternate Tylenol (acetaminophen) 1-2 tablets and/or ibuprofen 200mg (1-3 tablets) every 6 hours each as needed; this means that you can take one OR the other at 3-hour intervals. If you are prescribed a Tylenol/narcotic combination for severe pain, use it instead of plain Tylenol as needed and switch back when your pain starts decreasing. Do not take more than 4000mg of acetaminophen in a day. Take medications as prescribed or indicated on the labeling. Follow-up: Call Dr. Ying's office at [phone] to make your postop appointment (Saturday ~2 weeks after surgery). Clinic is held in the [facility] on the first floor of [facility]. Call the office if you have: * increasing pain not responsive to pain medication * fever of 101F or higher * vomiting * unusual or increasing bleeding or drainage from wounds * increasing redness or swelling at wound sites Also, see your primary medical doctor (Dr. Peralta) within 1-2 weeks. Referrals: Luis Peralta MD [Non Staff, Medical] - Disposition: HOME - Home Medications Comprehensive Discharge Medication List: Ambulatory Orders Acetaminophen [Tylenol .Regular Strength -] 650 mg PO Q6H prn tablet 11/16/17 Ibuprofen [Motrin -] 600 mg PO Q6H prn tablet 11/16/17
--- NOTE | 2017-11-16 15:00 | PN ---
Progress Note, Physician History of Present Illness: Pt states she feels well. Denies fever, chills. Reports minimal abd pain, tolerating po intake, and ambulating. - Current Medication List Current Medications: Active Medications Acetaminophen (Tylenol -) 650 mg PO Q6H [facility] Last Admin: 11/16/17 11:44 Dose: Not Given Ibuprofen (Motrin -) 600 mg PO Q6H [facility] Last Admin: 11/16/17 09:39 Dose: Not Given Ondansetron HCl (Zofran Injection) 4 mg IVPUSH Q6H PRN PRN Reason: NAUSEA - Objective Vital Signs: Vital Signs Temperature 98.6 F 11/16/17 13:41 Pulse Rate 69 11/16/17 13:41 Respiratory Rate 18 11/16/17 13:41 Blood Pressure 129/83 11/16/17 13:41 O2 Sat by Pulse Oximetry (%) 100 11/16/17 09:00 Constitutional: Yes: No Distress, Calm Cardiovascular: Yes: Regular Rate and Rhythm Respiratory: Yes: Regular Gastrointestinal: Yes: Normal Bowel Sounds, Soft, Tenderness (minimal epigastric /RUQ) Genitourinary: Yes: WNL Wound/Incision: Yes: Clean/Dry Neurological: Yes: Alert, Oriented Labs: CBC, BMP 11/15/17 06:20 11/15/17 06:20 INR, PTT INR 1.12 (0.82-1.09) 11/11/17 17:32 CBCD WBC 5.2 K/mm3 (4.0-10.0) 11/15/17 06:20 RBC 3.66 M/mm3 (3.60-5.2) 11/15/17 06:20 Hgb 11.3 GM/dL (10.7-15.3) 11/15/17 06:20 Hct 33.0 % (32.4-45.2) 11/15/17 06:20 MCV 90.1 fl (80-96) 11/15/17 06:20 MCHC 34.2 g/dl (32.0-36.0) 11/15/17 06:20 RDW 12.9 % (11.6-15.6) 11/15/17 06:20 Plt Count 231 K/MM3 (134-434) 11/15/17 06:20 MPV 7.7 fl (7.5-11.1) 11/15/17 06:20 CMP Sodium 140 mmol/L (136-145) 11/15/17 06:20 Potassium 3.3 mmol/L (3.5-5.1) L 11/15/17 06:20 Chloride 104 mmol/L (98-107) 11/15/17 06:20 Carbon Dioxide 29 mmol/L (21-32) 11/15/17 06:20 Anion Gap 7 (8-16) L 11/15/17 06:20 BUN 3 mg/dL (7-18) L 11/15/17 06:20 Creatinine 0.5 mg/dL (0.55-1.02) L 11/15/17 06:20 Creat Clearance w eGFR > 60 (>60) 11/15/17 06:20 Calcium 8.7 mg/dL (8.5-10.1) 11/15/17 06:20 Total Bilirubin 1.1 mg/dL (0.2-1.0) H 11/15/17 06:20 AST 162 U/L (15-37) H 11/15/17 06:20 ALT 330 U/L (12-78) H 11/15/17 06:20 Alkaline Phosphatase 143 U/L (45-117) H D 11/15/17 06:20 Total Protein 6.2 g/dl (6.4-8.2) L 11/15/17 06:20 Albumin 3.0 g/dl (3.4-5.0) L 11/15/17 06:20 Problem List - Problems (1) Abdominal pain Code(s): R10.9 - UNSPECIFIED ABDOMINAL PAIN Qualifiers: Abdominal location: epigastric Qualified Code(s): R10.13 - Epigastric pain (2) Elevated liver function tests Code(s): R94.5 - ABNORMAL RESULTS OF LIVER FUNCTION STUDIES (3) Status post endoscopic retrograde cholangiopancreatography Code(s): Z98.890 - OTHER SPECIFIED POSTPROCEDURAL STATES (4) Cholelithiasis Code(s): K80.20 - CALCULUS OF GALLBLADDER W/O CHOLECYSTITIS W/O OBSTRUCTION Qualifiers: Cholelithiasis location: gallbladder Cholecystitis presence: without cholecystitis Biliary obstruction: without biliary obstruction Qualified Code(s): K80.20 - Calculus of gallbladder without cholecystitis without obstruction Assessment/Plan 42 y.o. female presenting with abd pain, enlarged GB, and CBD stone cholecystitis/choledocolithiasis s/p ERCP/stone extraction s/p laparascopic cholecystectomy - antibiotics have been d/c'd - pt afebrile, lipase trending down - surgery following pt instructed to seek medical attention if develops persistent/worsening abd pain/fever currently afebrile/stable for d/c home per surgery
--- NOTE | 2017-11-21 17:38 | PATH ---
Surgical Pathology Report Patient Name: TIMUR HANCOCK Med. Rec. #: [id number] /Age/Gender: 1975 (Age: 42) / F Account: [id number] Location: [facility]URG Taken: 11/15/2017 Received: 11/20/2017 Reported: 11/21/2017 Physicians: Rosales Ying M.D. Specimen(s) Received GALLBLADDER Clinical History Choledocholithiasis, biliary colic Final Diagnosis GALLBLADDER, LAPAROSCOPIC CHOLECYSTECTOMY: CHRONIC CHOLECYSTITIS AND CHOLELITHIASIS. Electronically Signed Nuria Do M.D. Gross Description Received in formalin, labeled "gallbladder," is a 10.4 x 3.0 x 2.8 cm. gallbladder with a 0.2 cm. in length portion of cystic duct attached. The outer surface is munoz burciaga and varies from smooth to shaggy. The lumen contains green, tenacious bile as well as abundant irregular to fragmented choleliths ranging from 0.1-1.0 cm in greatest dimension. The mucosa is munoz-green and focally eroded. The wall of the gallbladder averages 0.1 cm. in thickness. Supervisor [place] sections are submitted in one cassette. 11/20/2017 saudi11/20/2017
== END 2017-11-16 16:00 | disposition home or self-care (01) | DRG 263 ==
LOC: JER 14:18 → JERBED 18:59 → OBSVTOIN 19:47 → J7W 22:56
PROVIDERS: ADMIT Surgery; ATTEND Surgery
PROC: 0FC98ZZ Extirpation of Matter from Common Bile Duct, Via Natural or Artificial Opening Endoscopic (ICD-10-PCS; principal; 2017-11-12 12:00)
PROC: 0FT44ZZ Resection of Gallbladder, Percutaneous Endoscopic Approach (ICD-10-PCS; 2017-11-15)
DX: K80.70 Calculus of gallbladder and bile duct without cholecystitis without obstruction (principal); R94.5 Abnormal results of liver function studies; K59.00 Constipation, unspecified; K85.80 Other acute pancreatitis without necrosis or infection; R17 Unspecified jaundice
CPT/HCPCS: 36415; 74181-TC; 76000-TC-FY; 76705-TC; 80053; 81003; 81015; 82150; 82248; 83690; 84703; 85025; 85610; 86140; 86850; 86900; 86901; 88304-TC; 94760; 99283-25; G0378; J0131; J7030

== ENCOUNTER 2020-08-09 04:28 | Emergency (ER) | payer OTHER ==
[2020-08-09 05:08] VITALS: BP 117/71; PULSE 79; TEMP 99.6; BMI 25.2
[2020-08-09] MEDS ORDERED: IBUPROFEN 600 MG TABLET (FP) PO ONE ×3 (05:29→05:38)
[2020-08-09] MEDS ORDERED: ONDANSETRON *ODT* 4 MG TABLET SL ONE (05:29)
[2020-08-09] MEDS ORDERED: ONDANSETRON *ODT* 4 MG TABLET ONE ×2 (05:35→05:38)
== END 2020-08-09 06:00 | disposition home or self-care (01) ==
LOC: JER 04:28
DX: U07.1 COVID-19 (principal); R11.0 Nausea
CPT/HCPCS: 99283-25